=== PATIENT | male | born 1950 | race Caucasian/White ===

== ENCOUNTER → 2021-03-09 08:32 | Outpatient (BNVA) | payer MEDICARE, SELFPAY | PROVIDERS: PCP Internal Medicine; Visit Provider Urology | DX: R31.29 Other microscopic hematuria (principal); N40.0 Benign prostatic hyperplasia without lower urinary tract symptoms | CPT/HCPCS: 51798; 99202 ==

== ENCOUNTER 2021-04-04 09:36 | Outpatient (REF) | payer MEDICARE, SELFPAY ==
--- NOTE | ~2021-04-04 | US_ITS ---
EXAMINATION: US RETROPERITONEAL COMPLETE (RENAL) CLINICAL INFORMATION: Microscopic hematuria. COMPARISON: CT abdomen and pelvis without with contrast dated 11/14/2012. TECHNIQUE: Real-time imaging of the kidneys and bladder. FINDINGS: RIGHT KIDNEY: 11.6 x 5.2 x 6.1 cm (SAG x AP x TRV). The kidney is normal in size, contour, and echogenicity. Renal cortical thickness is normal. No calculi or focal parenchymal lesions. No hydronephrosis. LEFT KIDNEY: 11.3 x 4.9 x 5.2 cm (SAG x AP x TRV). The kidney is normal in size, contour, and echogenicity. Renal cortical thickness is normal. No calculi or focal parenchymal lesions. No hydronephrosis. BLADDER: Well distended and normal. Bilateral ureteral jets are demonstrated. Prevoid bladder volume is 150 mL. Postvoid bladder volume is 4 mL. Prostate volume is 24 mL. US/US retroperitoneal comp IMPRESSION: Negative exam. A cause for the patient's hematuria has not been found..
== END 2021-04-04 09:37 | disposition home or self-care (01) ==
LOC: HO.US 09:36
PROVIDERS: PCP Internal Medicine; Visit Provider Urology
DX: R31.29 Other microscopic hematuria (principal)
CPT/HCPCS: 76770

== ENCOUNTER 2021-09-12 09:33 | Outpatient (REF) | payer MEDICARE, SELFPAY ==
[2021-09-12 17:02] LABS: Urine Cytology See Pathology rpt
== END 2021-09-12 09:34 | disposition home or self-care (01) ==
LOC: HO.LAB 09:33
PROVIDERS: PCP Internal Medicine; Visit Provider Urology
DX: Z13.9 Encounter for screening, unspecified (principal); R31.29 Other microscopic hematuria
CPT/HCPCS: 52000; 88112; 99212

== ENCOUNTER 2022-03-14 10:25 | Outpatient (REF) | payer MEDICARE, SELFPAY ==
[2022-03-14 17:30] LABS: Urine Cytology See Pathology rpt
== END 2022-03-14 10:26 | disposition home or self-care (01) ==
LOC: HO.LAB 10:25
PROVIDERS: PCP Internal Medicine; Visit Provider Urology
DX: R31.29 Other microscopic hematuria (principal)
CPT/HCPCS: 88112; 99212

== ENCOUNTER 2023-03-13 09:37 | Outpatient (REF) | payer MEDICARE, SELFPAY ==
[2023-03-13 16:41] LABS: Urine Cytology See Pathology rpt
== END 2023-03-13 09:38 | disposition home or self-care (01) ==
LOC: HO.LNP 09:37
PROVIDERS: Visit Provider Urology
DX: R31.29 Other microscopic hematuria (principal)
CPT/HCPCS: 81003; 88112; 99212

== ENCOUNTER 2023-03-13 09:37 | Outpatient (AMB) | payer MEDICARE, SELFPAY ==
--- NOTE | 2023-03-13 09:57 | A.OFFVIS_ITS ---
Intake Intake Visit Reasons: 1Y UA(Hematuria) Intake Note: Patient is Present for Follow Up Urinalysis Urology Medication: Finasteride, Antibiotic Allergies: None Blood Thinners: None Allergies No Known Allergies Allergy (Verified 03/13/23 10:01) HPI HPI Comments History of Present Illness Details Dusty is a pleasant male. He is a patient of Dr. Erwin. He is seen for the following urologic conditions - microscopic hematuria Trace blood today Persistent Prior full examination Follow-up p.r.n. Microscopic hematuria Microscopic hematuria was diagnosed during - PCP visit They are here for the - initial evaluation. Prior evaluation 2012 Since the last visit the patient has - has not noticed gross hematuria, continues to have positive for microscopic hematuria Relevant medical history - anticoagulation therapy - no - kidney stones no - prostatitis no Prior tobacco use - prior tobacco exposure stopped 2014 Workplace exposures - none that he is aware of Radiographic imaging: None completed, renal bladder ultrasound ordered Other investigations - cytology, pending Cystoscopy findings 2021 clear PFSH Medical History HTN (hypertension) BPH (benign prostatic hyperplasia) Hematuria Surgical History History of surgery Review of Systems Const Denies chills and Denies fever(s) Card Reports no additional complaints and Denies syncope Resp Denies cough GI Denies abdominal pain and Denies heartburn Reports as per HPI and Denies change in libido Neuro Denies syncope Psych Denies change in libido Endo Denies change in libido Physical Exam Const General: cooperative, healthy appearing, comfortable and no acute distress Orientation/consciousness: patient oriented x3 HEENT Face and sinus: Yes normal facial exam Mouth: moist mucous membranes Neck Neck: Yes normal visual inspection, Yes full ROM and Yes trachea midline Chest Chest palpation & inspection: normal inspection of the chest Resp Effort & Inspection: normal respiratory effort, able to speak in complete sentences and no respiratory distress GI Inspection: Yes normal to inspection Back/Spine/Pelvis Cervical Spine: normal cervical lordosis Thoracic/Lumbar Spine: thoracic and lumbar spine normal to inspection Skin General skin exam: no rashes or lesions noted Neuro General: patient oriented x3, gait normal, tone normal and moves all extremities Extrem General: Yes normal to inspection and Yes capillary refill normal Results AMB Urinalysis, Automated UA Leukoctes 0 Yuliana/uL Last Edit by Lila Gonzalez, A on 03/13/23 10:02 UA Nitrite Negative Last Edit by Lila Gonzalez, A on 03/13/23 10:02 UA Urobilinogen 0.2 mg/dL Last Edit by Lila Gonzalez, A on 03/13/23 10:0 2 UA Protein 0 mg/dL Last Edit by Lila Gonzalez, A on 03/13/23 10:02 UA pH 5.5 Last Edit by Lila Gonzalez, A on 03/13/23 10:02 UA Blood 80 Hay/uL Last Edit by Lila Gonzalez, A on 03/13/23 10:02 UA Specific Arnegard 1.020 Last Edit by Lila Gonzalez, A on 03/13/23 10: 02 UA Ketone Negative Last Edit by Lila Gonzalez, A on 03/13/23 10:02 UA Bilirubin 0 mg/dL Last Edit by Lila Gonzalez, A on 03/13/23 10:02 UA Glucose 0 mg/dL Last Edit by Lila Gonzalez, A on 03/13/23 10:02 Results Reviewed Results Reviewed: Laboratory Last Values Urine pH (Auto) 5.5 03/13/23 10:01 Specific Arnegard (Auto) 1.020 03/13/23 10:01 Urine Protein (Auto) 0 mg/dL 03/13/23 10:01 Glucose (UA)(Auto) 0 mg/dL 03/13/23 10:01 Urine Ketones (Auto) Negative 03/13/23 10:01 Urine Blood (Auto) 80 Hay/uL 03/13/23 10:01 Urine Nitrite (Auto) Negative 03/13/23 10:01 Urine Bilirubin (Auto) 0 mg/dL 03/13/23 10:01 Urine Urobilinogen (Auto) 0.2 mg/dL 03/13/23 10:01 Leukocyte Esterase (Auto) 0 Yuliana/uL 03/13/23 10:01 Assessment & Plan Assessment & Plan (1) Microscopic hematuria: Comment: Cystoscopy August 2021 Code(s): R31.29 - Other microscopic hematuria Plan P.r.n. follow-up Orders: Orders AMB Urinalysis Automated Today Z13.9 - Encounter for screening, unspecified Urine Cytology Today R31.29 - Other microscopic hematuria Patient Instructions: Imaging studies, laboratory and physical exam results were discussed and reviewed in detail. No major barriers to patient understanding were identified. An opportunity to ask questions regarding the treatment plan was provided. All questions were answered. The patient expressed understanding and agreement with the above treatment plan. The patient is aware they should contact our office by phone for worsening of their current condition or the appearance of new urologic symptoms. Compliance is encouraged with any medications and followup testing that is ordered. It is a privilege to participate in the urologic care of your patient. If you have any questions or concerns regarding treatment for the above conditions, or other urologic issues, please do not hesitate to contact me. The office telephone contact is [phone]. This note is constructed using voice recognition software. While every effort has been made to ensure accuracy invoice classification clerk errors may have been included. Yours sincerely, Dr Kyle Gracia MD, [facility] - Urology Providers of Expert, Compassionate Care for the Genitourinary System Coding Level of Care Code Est Pt Level 3 (10210) Diagnoses Microscopic hematuria R31.29
== END 2023-03-13 10:11 | disposition home or self-care (01) ==
PROVIDERS: Visit Provider Urology
DX: R31.29 Other microscopic hematuria (principal); Z13.9 Encounter for screening, unspecified
CPT/HCPCS: 99213

== ENCOUNTER 2023-11-19 12:58 | Outpatient (AMB) | payer MEDICARE, SELFPAY ==
--- NOTE | 2023-11-19 13:06 | A.OFFVIS_ITS ---
Vital Signs 11/19/23 13:12 Weight 185 lb BP 133/60 Blood Pressure Location Rt brachial Position Sitting Pulse 55 Intake Visit Reasons: RIH Intake Note: Patient referred by pcp Dr. Erwin for [facility]. Present for 3-4 wks. Patient c/o: swelling on rt lower abd. Hot Top Liner Helper Required: No Accompanied by: Candy Allergies No Known Allergies Allergy (Verified 11/19/23 13:12) HPI Comments Details: Patient presents with his . He presents here with a three-week history of symptomatic enlarging right inguinal hernia. Because it is increasing in size, become more symptomatic, he would like to have repaired. Patient otherwise is tolerating his diet, and having regular bowel habits. He does do strenuous/heavy lifting at times. He is quite active around his home. Chart was reviewed and patient evaluated. [facility] Medical History HTN (hypertension) BPH (benign prostatic hyperplasia) Hematuria Surgical History History of surgery Social History (Updated 11/19/23 @ 13:11 by SHAZIA Gibson) Patient Tobacco Use Status: Former Tobacco user Physical Exam Vital Signs: Last Vital Signs Pulse 55 11/19/23 13:12 BP 133/60 11/19/23 13:12 Chest Other: Chest breath sounds bilaterally, HS 1 in 2 GI Other: Patient was examined both supine and standing with Valsalva. Left groin negative. Abdomen is soft and benign. Moderately corpulent. Genitalia within normal limits. Very large reducible right inguinal hernia. Assessment & Plan Assessment & Plan (1) Right inguinal hernia: Code(s): K40.90 - Unilateral inguinal hernia, without obstruction or gangrene, not specified as recurrent Category: Surgical Plan Risks, benefits, alternatives of open right inguinal hernia repair with mesh reviewed with the patient included but not limited to bleeding, infection, recurrence, numbness, pain, scarring the patient wished to proceed. All questions answered. Arrangements were made for this. Coding Level of Care Code New Pt Level 5 (00802) Diagnoses Right inguinal hernia K40.90
[2023-11-19 13:12] VITALS: BP 133/60; PULSE 55
== END 2023-11-19 13:24 | disposition home or self-care (01) ==
PROVIDERS: PCP Internal Medicine; Referring Provider Internal Medicine; Visit Provider Surgery
DX: K40.90 Unilateral inguinal hernia, without obstruction or gangrene, not specified as recurrent (principal)
CPT/HCPCS: 99204

== ENCOUNTER → 2023-11-19 12:58 | Outpatient (BNVA) | payer MEDICARE, SELFPAY | PROVIDERS: PCP Internal Medicine; Referring Provider Internal Medicine; Visit Provider Surgery | DX: K40.90 Unilateral inguinal hernia, without obstruction or gangrene, not specified as recurrent (principal) | CPT/HCPCS: 99202 ==

== ENCOUNTER 2023-12-20 11:52 | Day surgery (SDC) | payer MEDICARE, SELFPAY ==
[2023-12-17 13:39] VITALS: BMI 29.9
--- NOTE | 2023-12-19 11:12 | MHC.SHP ---
Pre-Procedural Eval Section A - 24 Hr Update-Section A only Date of Service: 12/20/23 The patient is an INPATIENT: No Changes since office visit: No Cold of Flu in the past 2 weeks, No New Medical Problems, No Changes in Medication and No Patient answered all questions Section B - Complete if H&P > 30 days Chief Complaint: Unilateral inguinal hernia, without obstruction or Allergies: Allergies Allergy/AdvReac Type Severity Reaction Status Date / Time No Known Allergies Allergy Verified 11/19/23 13:12 Review of Systems Sugical H&P ROS: Negative: Constitution, Cardiovascular, Respiratory, Neurological, Psychiatric, Hem-Onc, Allergic/Immunologic, Gastrointestinal, Genitourinary, Musculoskeletal, Integumentary, Endocrine and Eyes/Ears/Nose/Throat Exam Surgical H&P Exam: Normal: HEENT, Normal: Heart, Normal: Lungs, Normal: Extremities, Normal: Abdomen, Normal: Skin and Normal: Neurological Plan I have reviewed the history and physical and performed a pertinent physical examination on my patient. No changes have occurred unless specified. Time Spent With Patient Time: Total time managing care of this patient today ____ minutes.
[2023-12-20] VITALS (8 sets, daily range): BP systolic 105–126; BP diastolic 49–63; PULSE 62–66; RESP 12–14; TEMP 36.1–36.4; O2SAT 96; BMI 30.5
--- NOTE | 2023-12-20 12:13 | HO.ANESPROP2 ---
PMFSH Active Problems Active Problems: All Active Problems Right inguinal hernia (Acute) Microscopic hematuria (Acute) Past Medical History Medical History Psoriatic arthritis HTN (hypertension) BPH (benign prostatic hyperplasia) Hematuria Surgical History Surgical History Hx of colonoscopy History of hip replacement Hx of shoulder surgery Hx of cystoscopy History of Problems with Anesthesia: No Social History Social History Are you a primary health care marketing specialist to a significant other at home: No Do you presently have visiting nurse or other home services: No Patient Tobacco Use Status: Former Tobacco user Meds Allergies Allergy/AdvReac Type Severity Reaction Status Date / Time No Known Allergies Allergy Verified 12/20/23 12:52 Home Medications ?Medication ?Instructions ?Recorded ?Confirmed ?Last Taken ?Type naproxen 500 mg tablet 500 mg PO BID 03/09/21 12/20/23 Unknown History apremilast 30 mg tablet (Otezla) 30 mg PO BID 12/17/23 12/20/23 Unknown History lisinopril 20 1 tab PO DAILY 12/17/23 12/20/23 Unknown History mg-hydrochlorothiazide 12.5 mg tablet Exam Height,Weight and Vital Signs: Height 5 ft 6 in Weight 83.915 kg Airway Mallampati Class: III TM Dist: >3cm Neck ROM: Full Loose/Missing/Broken Teeth: Yes, Upper and Lower Heart: RRR Lungs: CTA Assessment and Plan Assessment Anesthesia Assessment: Anesthesia Plan Discussed, Smoking Cess. Discussed and Chart Reviewed Final Anesthetic Review History of Problems with Anesthesia: No NPO: Yes ASA Class: II Final Preanesthetic Review: Meds/Allgs Chart Reviewed, Consent Obtained/Reviewed and Anes Risks/Benef Reviewed Patient Risk: Low Procedure Risk: Low Anesthetic Plan Anesthetic Plan: GA Disposition: Standard PACU
--- NOTE | 2023-12-20 12:40 | ECG_ITS ---
Test Reason : ? BBB Blood Pressure : / mmHG Vent. Rate : 061 BPM Atrial Rate : 061 BPM P-R Int : 134 ms QRS Dur : 120 ms QT Int : 420 ms P-R-T Axes : -29 -30 -23 degrees QTc Int : 422 ms Normal sinus rhythm Left axis deviation Right bundle branch block Minimal voltage criteria for LVH, may be normal variant ( R in aVL ) Lateral infarct , age undetermined Abnormal ECG No previous ECGs available Referred By: Rosetta Pena Electronically Signed By:RODRI LAW
[2023-12-20] MEDS: Lactated Ringers 1,000 ML 50 ML IVCONT (12:55)
--- NOTE | 2023-12-20 13:50 | P.OP_ITS ---
Operative Note Operative Note Date of Service: 12/20/23 Narrative: Preoperative diagnosis: [] Symptomatic large right inguinal hernia Postop diagnosis: [] The same Procedure [] open right inguinal herniorrhaphy Surgeon: [] Sagar Historian Research Assistant: [] Génesis Type of Anesthesia: [] General Indication for surgery: [] Very large indirect right inguinal hernia. No indirect hernia Findings: [] Patient brought to the operating room, placed on operative table supine position, after an adequate level of general anesthesia was induced, the patient's abdomen is prepped and draped in usual sterile fashion. Using a small right para inguinal incision, this carried down through skin, subcutaneous tissue, Jen's fascia. External oblique fibers were opened in the direction with care to isolate and preserve the ilioinguinal nerve throughout the procedure. Spermatic cord was identified and retracted from the field. Exploration of the cord demonstrated no indirect hernia. Patient had a very large indirect hernia which was reduced. A appropriately sized Bard plug was placed in this defect and sutured inferiorly to the inguinal ligament, and superiorly to the transversalis fascia using interrupted 0 Ethibond suture. At completion of procedure, mesh was in good position with no gaps or tension. Wound was infiltrated with ilioinguinal block and it the incision as well at the beginning at the end with 0.5% Marcaine. Wound was irrigated, secured hemostasis, and closed in the following manner; external oblique fascia was closed using running 2-0 Vicryl suture. Jen's fascia was reapproximated using interrupted 3-0 Vicryl suture. Interrupted inverted deep dermal 3-0 Vicryl sutures followed by running subcuticular 4-0 Vicryl sutures were placed. Steri-Strips and sterile dressings were applied. Sponge, needle, and instrument counts were reported correct. Patient tolerated the procedure well and emerged from anesthesia stable condition. Ipsilateral testicle was intrascrotal at completion.
== END 2023-12-20 14:52 | disposition home or self-care (01) ==
PROVIDERS: PCP Internal Medicine; Visit Provider Surgery
PROC: (CPT 49505; principal; 2023-12-20 14:10)
DX: K40.90 Unilateral inguinal hernia, without obstruction or gangrene, not specified as recurrent (principal); I10 Essential (primary) hypertension; L40.50 Arthropathic psoriasis, unspecified; N40.0 Benign prostatic hyperplasia without lower urinary tract symptoms; R31.29 Other microscopic hematuria; Z79.1 Long term (current) use of non-steroidal anti-inflammatories (NSAID); Z79.899 Other long term (current) drug therapy; Z98.890 Other specified postprocedural states; Z87.891 Personal history of nicotine dependence
CPT/HCPCS: 49505; 93005; C1781; J0690; J1100; J2003; J2250; J2405; J2704; J3010

== ENCOUNTER → 2023-12-20 11:52 | Outpatient (BNV) | payer MEDICARE, SELFPAY | PROVIDERS: PCP Internal Medicine; Visit Provider Surgery | DX: K40.90 Unilateral inguinal hernia, without obstruction or gangrene, not specified as recurrent (principal) | CPT/HCPCS: 49505 ==

== ENCOUNTER → 2023-12-20 12:40 | Outpatient (BNV) | payer MEDICARE, SELFPAY | PROVIDERS: PCP Internal Medicine; Visit Provider Internal Medicine | DX: I45.10 Unspecified right bundle-branch block (principal); R94.31 Abnormal electrocardiogram [ECG] [EKG] | CPT/HCPCS: 93010 ==

== ENCOUNTER 2023-12-30 12:45 | Outpatient (AMB) | payer MEDICARE, SELFPAY ==
--- NOTE | 2023-12-30 12:54 | MHC.OFFVIS ---
Intake Visit Reasons: s/p RIH repair w/mesh Intake Note: Patient here s/p RIH repair w/mesh. Reports incision healing well. Patient c/o: stri strips still in place. Only took rx pain meds the first couple of days after surgery. SX: 12-20-2023. Head Up Operator Helper Required: No Accompanied by: Self / Same As Patient Allergies No Known Allergies Allergy (Verified 12/30/23 12:58) HPI Comments Details: Patient presents for follow-up status post right inguinal hernia repair. He is doing well. He is tolerating his diet. He is increasing his activity level. He has minimal incisional discomfort. [facility] Medical History Psoriatic arthritis HTN (hypertension) BPH (benign prostatic hyperplasia) Hematuria Surgical History Hx of colonoscopy History of hip replacement Hx of shoulder surgery Hx of cystoscopy Social History Are you a primary post acute care nurse practitioner to a significant other at home: No Do you presently have visiting nurse or other home services: No Patient Tobacco Use Status: Former Tobacco user Physical Exam GI Other: Abdomen is soft. Wound clean dry and intact healing well Assessment & Plan Assessment & Plan (1) Status post right inguinal hernia repair: Code(s): Z98.890 - Other specified postprocedural states; Z87.19 - Personal history of other diseases of the digestive system Category: Medical Plan Patient was been given local instructions, and will otherwise follow-up p.r.n.. All questions answered. Coding Level of Care Code Global (82340) Diagnoses Status post right inguinal hernia repair Z98.890; Z87.19
== END 2023-12-30 13:08 | disposition home or self-care (01) ==
PROVIDERS: PCP Internal Medicine; Visit Provider Surgery
DX: Z98.890 Other specified postprocedural states (principal); Z87.19 Personal history of other diseases of the digestive system
CPT/HCPCS: 99024

== ENCOUNTER → 2023-12-30 12:45 | Outpatient (BNVA) | payer MEDICARE, SELFPAY | PROVIDERS: PCP Internal Medicine; Visit Provider Surgery | DX: K40.90 Unilateral inguinal hernia, without obstruction or gangrene, not specified as recurrent (principal); Z87.19 Personal history of other diseases of the digestive system; Z98.890 Other specified postprocedural states | CPT/HCPCS: 99212 ==

== ENCOUNTER 2024-02-21 17:40 | Emergency (ER) | payer MEDICARE, SELFPAY ==
--- NOTE | ~2024-02-21 | CT_ITS ---
CLINICAL HISTORY: slurred speech, bilat leg weakness, resolved CT Head without contrast. CT angiography head and neck with contrast. 3D Postprocessing. Comparison: None Findings: HEAD CT: No intra-axial mass, midline shift, hydrocephalus, or acute hemorrhage. No significant atrophy-like change or white matter disease. Opacification of the anterior and posterior ethmoid air cells with obstruction of the sphenoethmoid recesses. Moderate mucosal thickening in the ethmoid air cells and maxillary sinuses. HEAD AND NECK CTA: The bilateral common carotid arteries, carotid bifurcations, and internal carotid arteries are widely patent, including intracranial segments. Anterior and middle cerebral arteries are patent with no occlusion or narrowing identified. The cervical vertebral arteries and V4 segments appear normal. Basilar artery and posterior cerebral arteries are within normal limits. IMPRESSION: 1. No acute intracranial finding. 2. Patent head and neck CTA examination. This document has been electronically signed by: Vic Bedoya MD on 02/21/2024 21:23:44
[2024-02-21 18:00] VITALS: BP 86/45; BP 94/43; PULSE 61; PULSE 76; RESP 18; O2SAT 96; BMI 32.6
--- NOTE | 2024-02-21 18:10 | PC.NURSE ---
Pt comes to ED today by EMS from home after suffering low BP and an episode of unresponsiveness related to using ETOH, Nicotine, and Marijuana. Per Pt and , they used the above mentioned substances once before on 02/18/24 and enjoyed themselves, therefore decided to use them again today. Per the , they used the substances, eat a small snack then sat outside. Pt began to fell unwell and she brought him to the couch (no fall) then became unresponsive. Pt reports he does not use these substances regularly on 2x within the last week. A&Ox3 at this time; Pt reports fully feeling the effects of the MJ at this time. BP is soft. Skin is warm and dry Breaths and speech are unlabored. Facial symmetry noted. Pt received IVF in ambulance. Awaiting orders.
--- NOTE | 2024-02-21 19:25 | ECG_ITS ---
Test Reason : NEAR SYNCOPE Blood Pressure : / mmHG Vent. Rate : 079 BPM Atrial Rate : 079 BPM P-R Int : 136 ms QRS Dur : 142 ms QT Int : 418 ms P-R-T Axes : 067 -50 054 degrees QTc Int : 479 ms Normal sinus rhythm Right bundle branch block Left anterior fascicular block Bifascicular block Minimal voltage criteria for LVH, may be normal variant ( R in aVL ) Abnormal ECG When compared with ECG of 20-DEC-2023 12:48, QRS duration has increased Criteria for Lateral infarct are no longer Present T wave inversion no longer evident in Inferior leads QT has lengthened Referred By: Rosana Campa Electronically Signed By:LIZETTE ROSALES MD
--- NOTE | 2024-02-21 19:27 | ED.GENADULT ---
HPI - General Adult General Chief complaint: ETOH/Substance Use Stated complaint: briefly unresponsive, now alert, etoh, bp 84/48 Time Seen by Provider: 02/21/24 18:10 Source: patient and EMS Mode of arrival: EMS Limitations: no limitations History of Present Illness ED Provider: Dr. Rosana Campa HPI narrative: Patient comes to the emergency room via ambulance accompanied by his . According to the patient's , earlier today the patient was found unresponsive, could not wake him up for about 15 minutes, when she finally woke the patient up, patient had slurred speech, was very weak and could not get off the couch. Patient's called 911. Patient states that at this time, he feels completely back to normal. Patient states that earlier today, him and his got good news and they decided to celebrate by drinking alcohol and smoking marijuana. Patient states that they are not used to drinking or smoking and it was a bit much for him today. Patient states that he ?partied too hard . Related Data Home Medications ?Medication ?Instructions ?Recorded ?Confirmed naproxen 500 mg tablet 500 mg PO BID 03/09/21 12/30/23 apremilast 30 mg tablet (Otezla) 30 mg PO BID 12/17/23 12/30/23 lisinopril 20 1 tab PO DAILY 12/17/23 12/30/23 mg-hydrochlorothiazide 12.5 mg tablet Previous Rx's ?Medication ?Instructions ?Recorded finasteride 5 mg tablet 5 mg PO DAILY 90 days #90 tabs 09/12/21 Allergies Allergy/AdvReac Type Severity Reaction Status Date / Time No Known Allergies Allergy Verified 02/21/24 18:04 Review of Systems Review of Systems: Constitutional : No Weight loss, No Fever, No Chills, No Night Sweats, No Fatigue, No Malaise ENT/Mouth : No Hearing loss, No Ear Pain, No Nasal Congestion, No Sinus Pain, No Hoarseness, No sore throat, No Rhinorrhea, No Swallowing Difficulty Eyes: No Eye Pain, No Swelling, No Redness, No Foreign Body, No Discharge, No Vision Changes Cardiovascular : No Chest Pain, No SOB, No Dyspnea on Exertion, No Orthopnea, No Edema, No Palpitations Respiratory : No Cough, No Sputum, No Wheezing, No Smoke Exposure, No Dyspnea Gastrointestinal : No Nausea, No Vomiting, No Diarrhea, No Constipation, No abdominal Pain, No Hematochezia, No Melena Genitourinary : no irregular bleeding, No Dysuria, No Urinary Frequency, No Hematuria, No Urinary Incontinence, No Urgency, No Flank Pain, No Urinary Flow Changes, No Hesitancy Musculoskeletal : No joint pain, No Myalgias, No Joint Swelling Skin : No Skin Lesions, No rash Neuro : No Weakness, No Numbness, 1 episode possible loss of consciousness, dysarthria, bilateral leg weakness Psych : No Anxiety/Panic, No Depression, No SI/HI/AH/VH, No Social Issues, Heme/Lymph: No Bruising, No Bleeding,No Lymphadenopathy Endocrine : No Polyuria, No Polydipsia, No Temperature Intolerance [facility] Past Medical History Medical History Psoriatic arthritis HTN (hypertension) BPH (benign prostatic hyperplasia) Hematuria Surgical History Hx of colonoscopy History of hip replacement Hx of shoulder surgery Hx of cystoscopy Social History Social History Are you a primary hearing healthcare practitioner to a significant other at home: No Do you presently have visiting nurse or other home services: No Alcohol intake: current Alcohol intake frequency: holidays/special occasions only Patient Tobacco Use Status: Former Tobacco user Smoked in Last 30 Days: Yes Use of substances other than those prescribed or required for medical reasons: Yes Substance Use Type: Marijuana Last Used Substance: Just Prior to Admission Any prior treatment program specific to substance use: No Advance Directives: No Advance Directives Information Provided: No Do you have a plan to hurt others: No Plan Physical Exam ED Vital Signs: Vital Signs - 24 hr 02/21/24 18:00 02/21/24 21:52 Temperature 98.0 F Pulse Rate 61 82 Respiratory Rate 18 18 Blood Pressure 94/43 L 107/60 Pulse Oximetry 96 97 Oxygen Delivery Method Room Air Room Air BMI result Body Mass Index 32.6 Const Other: Appearance: Alert. Oriented X3. No acute distress. Eyes: Pupils equal, round and reactive to light. ENT: Pharynx normal. Neck: Normal inspection. Neck supple. No lymph nodes noted. No crepitus CVS: Normal heart rate and rhythm. Pulses normal. Normal S1 and S2 Respiratory: No respiratory distress. Breath sounds normal. No Wheezing. No rales Abdomen: Soft and nontender. No rigidity. No distention. Skin: Skin warm and dry. Normal skin color. Normal skin turgor. Extremities: No lower extremity edema. No Lacerations. No Rash Neuro: Oriented X 3. No motor deficit. No sensory deficit. Moving all extremities. No slurred speech. CN 2 through 12 grossly intact Psych: calm, cooperative, normal affect NIH Stroke Scale Internal: Initial- Upon Arrival Level of Consciousness: Alert Level of Consciousness Questions: Answers both questions correctly Level of Consciousness Commands: Performs both tasks correctly Best Gaze: Normal Visual: No visual loss Facial Palsy: Normal Motor Arm (Right): No drift Motor Arm (Left): No drift Motor Leg (Right): No drift Motor Leg (Left): No drift Limb Ataxia: Absent Sensory: Normal Best Language: No aphasia Dysarthia: Normal Extinction and Inattention: No abnormality Score: 0 Course Course Course Narrative: I discussed with the patient that patient's symptoms overlap with a TIA. It is likely that patient's symptoms were related to combining alcohol and marijuana. However, and neurological event could still be possible. Patient and his arguable to do the workup Medications Administered Discontinued Medications Generic Name Dose Route Start Last Admin Trade Name Freq PRN Reason Stop Dose Admin Iohexol 100 ml 02/21/24 20:29 02/21/24 20:33 Iohexol 350 Mg/Ml 100 Ml Infus..Btl IV 02/21/24 20:30 70 ml ONCE ONE Administration Medical Decision Making Medical Decision Making [facility] Narrative: My interpretation of labs: Patient's white blood cell count 16.7, normal chemistry, normal magnesium, urine negative for UTI, positive for THC and mildly elevated ETOH. CTA shows patent vasculature. Patient is alert and oriented x3, ambulatory, feeling well. No deficits. Unlikely that patient had a TIA, most likely secondary to medication/drug side effect. Differential Diagnosis Differential Diagnoses: The differential diagnosis associated with the presentation includes (As above) Admission/Observation Consideration of admission/observation: Escalation of care including admission/observation considered (Given patient's symptoms, observation/admission for further testing) Lab Data [facility] Lab Attestation statement: I reviewed the patient's lab results. 02/21/24 19:41 02/21/24 19:41 Labs: Lab Results 02/21/24 02/21/24 Range/Units 19:40 19:41 WBC 16.7 H (4.8-10.8) X10*3/uL RBC 5.33 (4.60-5.80) X10*6/uL Hgb 15.8 (14.0-18.0) g/dl Hct 48.4 (42.0-52.0) % MCV 90.8 (80.0-98.0) fL MCH 29.6 (27.0-33.0) pg MCHC 32.6 (31.0-36.0) g/dl RDW 13.8 (11.0-16.0) % Plt Count 202 (160-400) X10*3/uL MPV 10.1 (9.4-12.4) fL Immature Gran % (Auto) 0.5 H (0.0-0.4) % Neut % (Auto) 37.8 L (45-73) % Lymph % (Auto) 56.3 H (20-40) % [place] % (Auto) 4.5 (2-11) % Eos % (Auto) 0.6 (0-4) % Baso % (Auto) 0.3 (0-2) % Lymph # (Auto) 9.4 H (1.2-4.9) X10*3/uL [place] # (Auto) 0.8 (0.1-1.2) X10*3/uL Eos # (Auto) 0.1 (0.0-0.4) X10*3/uL Baso # (Auto) 0.1 (0.0-0.2) X10*3/uL Abs Immat Gran (auto) 0.08 H (0.00-0.03) X10*3/uL Absolute Neuts (auto) 6.3 (2.0-8.3) x10*3/uL Absolute Nucleated RBC 0.000 (0.0-0.012) X10*3/uL Nucleated RBC % (auto) 0.0 (0.0-0.2) /100WBC Smear Tech's Comments VERIFIED PT 11.5 (10.9-12.4) SEC INR 1.0 (0.9-1.1) Sodium 141 (135-145) mmol/L Potassium 3.3 (3.3-5.1) mmol/L Chloride 105 (96-108) mmol/L Carbon Dioxide 22 (22-29) mmol/L Anion Gap 17 (12-20) BUN 14 (9-16) mg/dL Creatinine 1.11 (0.5-1.4) mg/dL Estim Creat Clear Calc 63.7 Estimated GFR > 60 Random Glucose 97 (60-115) mg/dL Calcium 9.2 (8.4-10.2) mg/dL Magnesium 2.0 (1.6-2.6) mg/dL Total Bilirubin 0.3 (0.0-1.0) mg/dL Direct Bilirubin 0.1 (0.0-0.5) mg/dL AST 27 (5-37) U/L ALT 22 (0-40) U/L Alkaline Phosphatase 68 (39-117) U/L Troponin I High Sens 4.2 (<3.5-35.0) ng/L Total Protein 8.2 H (6.5-8.0) g/dL Albumin 4.3 (3.5-5.0) g/dL Urine Color Yellow Urine Appearance Clear Urine pH 5.5 (5.0-9.0) Ur Specific [place] 1.010 (1.005-1.025) Urine Protein 100 (2+) H (Neg-Trace) mg/dL Urine Glucose (UA) Negative (Negative) mg/dL Urine Ketones Negative (Negative) mg/dL Urine Blood Trace H (Negative) Urine Nitrite Negative (Negative) Ur Leukocyte Esterase Negative (Negative) Urine RBC 0-2 (0-2) /HPF Urine WBC 0-5 (0-5) /HPF Ur Squamous Epith Cells 0-2 (0-2) /HPF Urine Bacteria None Seen (None Seen) Hyaline Casts 0-2 (0-2) /LPF Urine Opiates Screen Not Detected (Not Detect) Ur Buprenorphine Scrn Not Detected (Not Detect) ng/mL Ur Oxycodone Screen Not Detected (Not Detect) ng/mL Urine Methadone Screen Not Detected (Not Detect) ng/mL Urine Fentanyl Screen Not Detected (Not Detect) Ur Barbiturates Screen Not Detected (Not Detect) Ur Phencyclidine Scrn Not Detected (Not Detect) Ur Amphetamines Screen Not Detected (Not Detect) U Benzodiazepines Scrn Not Detected (Not Detect) Urine Cocaine Screen Not Detected (Not Detect) U Marijuana (THC) Screen POSITIVE H (Not Detect) Ethyl Alcohol 71 mg/dL Independent Interpretation I performed an independent interpretation of an: CT Scan Radiology Impression Discussion of test interpretation with radiology: I have reviewed the radiologist's reading. Radiologist Impression: HEAD CT: No intra-axial mass, midline shift, hydrocephalus, or acute hemorrhage. No significant atrophy-like change or white matter disease. Opacification of the anterior and posterior ethmoid air cells with obstruction of the sphenoethmoid recesses. Moderate mucosal thickening in the ethmoid air cells and maxillary sinuses. HEAD AND NECK CTA: The bilateral common carotid arteries, carotid bifurcations, and internal carotid arteries are widely patent, including intracranial segments. Anterior and middle cerebral arteries are patent with no occlusion or narrowing identified. The cervical vertebral arteries and V4 segments appear normal. Basilar artery and posterior cerebral arteries are within normal limits. IMPRESSION: 1. No acute intracranial finding. 2. Patent head and neck CTA examination. Critical Care Time Critical Care Time Critical Care Time: Yes Total Critical Care Time: 45 Attestation: I have personally provided critical care time. Time includes review of lab data, radiology results, discussion with consultants, and monitoring for potential decompensation. Intervention performed as documented. Discharge Plan Discharge Clinical Impression: Side effect of drug Patient Disposition: Home, Self-Care Instructions: Adverse Drug Reaction (ED) Additional Instructions: Please follow-up with your primary care physician tomorrow. If you have any worsening or new symptoms, please return to the emergency room or call 911 Prescriptions: No Action lisinopril-hydrochlorothiazide 20-12.5 mg tablet 1 tab PO DAILY Otezla 30 mg tablet 30 mg PO BID naproxen 500 mg tablet 500 mg PO BID finasteride 5 mg tablet 5 mg PO DAILY 90 Days Qty: 90 1RF Print Language: Indonesian
[2024-02-21 19:52] LABS: Appearance Urine Clear; Color Urine Yellow; Glucose Urine UA Negative (Negative); Leukocyte Esterase Urine Negative (Negative); Nitrite Urine Negative (Negative); PH 5.5 (5.0-9.0); UMIC TRIGGER UACC YES; Urine Blood Trace (Negative); Urine Ketones Negative (Negative); Urine Protein 100 (2+) mg/dL (Neg-Trace)
[2024-02-21 19:53] LABS: Basophils Absolute Auto 0.1 X10*3/uL (0.0-0.2); Basophils Percent Auto 0.3 % (0-2); Eosinophils Absolute Auto 0.1 X10*3/uL (0.0-0.4); Eosinophils Percent Auto 0.6 % (0-4); Hematocrit 48.4 % (42.0-52.0); Hemoglobin 15.8 g/dl (14.0-18.0); Imm Gran Abs Auto 0.08 X10*3/uL (0.00-0.03); Imm Gran Pct Auto 0.5 % (0.0-0.4); Lymphocytes Percent Auto 56.3 % (20-40); MANUAL DIFF FLAG SCAN; Mean Corpuscular HGB Conc 32.6 g/dl (31.0-36.0); Mean Corpuscular Hemoglobin 29.6 pg (27.0-33.0); Mean Corpuscular Volume 90.8 fL (80.0-98.0); Mean Platelet Volume 10.1 fL (9.4-12.4); Monocytes Absolute Auto 0.8 X10*3/uL (0.1-1.2); Monocytes Percent Auto 4.5 % (2-11); Neutrophils Absolute Auto 6.3 x10*3/uL (2.0-8.3); Neutrophils Percent Auto 37.8 % (45-73); Platelet Count 202 X10*3/uL (160-400); Red Blood Count 5.33 X10*6/uL (4.60-5.80); Red Cell Distribution Width 13.8 % (11.0-16.0); SCAN SMEAR FLAG 1; White Blood Count 16.7 X10*3/uL (4.8-10.8)
[2024-02-21 19:58] LABS: Amphetamine Screen Urine Not Detected (Not Detect); Barbiturates, Urine Not Detected (Not Detect); Benzodiazepines Screen Urine Not Detected (Not Detect); Buprenorphine Scr Not Detected (Not Detect); Cannabinoid Screen Urine POSITIVE (Not Detect); Cocaine Screen Urine Not Detected (Not Detect); Fentanyl, urine Not Detected (Not Detect); Methadone Screen, Urine Not Detected (Not Detect); Opiate Screen Urine Not Detected (Not Detect); Oxycodone Screen Urine Not Detected (Not Detect); Phencyclidine Screen Urine Not Detected (Not Detect)
[2024-02-21 19:59] LABS: Ethanol 71 mg/dL
[2024-02-21 20:01] LABS: Prothrombin Time 11.5 SEC (10.9-12.4)
[2024-02-21 20:02] LABS: Alanine Aminotransferase 22 U/L (0-40); Albumin Level 4.3 g/dL (3.5-5.0); Alkaline Phosphatase 68 U/L (39-117); Anion Gap 17 (12-20); Aspartate Amino Transferase 27 U/L (5-37); Bilirubin Direct 0.1 mg/dL (0.0-0.5); Bilirubin Total 0.3 mg/dL (0.0-1.0); Blood Urea Nitrogen 14 mg/dL (9-16); Calcium 9.2 mg/dL (8.4-10.2); Carbon Dioxide 22 mmol/L (22-29); Chloride 105 mmol/L (96-108); Creatinine Clr Calc Pharmacy 63.7; Estimated Glomerular Filt Rate > 60; Glucose Random 97 mg/dL (60-115); Potassium 3.3 mmol/L (3.3-5.1); Sodium 141 mmol/L (135-145); Total Protein 8.2 g/dL (6.5-8.0)
[2024-02-21 20:06] LABS: Lymphocytes Absolute Auto 9.4 X10*3/uL (1.2-4.9)
[2024-02-21 20:09] LABS: Troponin-I High Sensitivity 4.2 ng/L (<3.5-35.0)
[2024-02-21] MEDS: iohexoL 350 MG/ML 100 ML INFUS..BTL IV (20:33)
[2024-02-21 20:59] LABS: SLIDE REVIEW VERIFIED
[2024-02-21 21:31] LABS: Bacteria Urine None Seen (None Seen); Hyaline Casts Urine 0-2 /LPF (0-2); RBC Urine 0-2 /HPF (0-2); Squamous Epithelial Cell Urine 0-2 /HPF (0-2); WBC Urine 0-5 /HPF (0-5)
[2024-02-21 21:52] VITALS: BP 107/60; PULSE 82; RESP 18; TEMP 36.7; O2SAT 97
[2024-02-21 22:43] VITALS: BP 114/55; PULSE 85; RESP 16; TEMP 35.8; O2SAT 96
== END 2024-02-21 22:45 | disposition home or self-care (01) ==
PROVIDERS: Emergency Provider Emergency Medicine; PCP Internal Medicine
DX: T40.711A Poisoning by cannabis, accidental (unintentional), initial encounter (principal); T51.0X1A Toxic effect of ethanol, accidental (unintentional), initial encounter; R40.4 Transient alteration of awareness; Y92.009 Unspecified place in unspecified non-institutional (private) residence as the place of occurrence of the external cause; R29.700 NIHSS score 0; F12.90 Cannabis use, unspecified, uncomplicated; F10.988 Alcohol use, unspecified with other alcohol-induced disorder; Y90.3 Blood alcohol level of 60-79 mg/100 ml
CPT/HCPCS: 36415; 70496; 70498; 80048; 80076; 80307; 81001; 83735; 84484; 85025; 85610; 93005; 99284; Q9967

== ENCOUNTER → 2024-02-21 19:24 | Outpatient (BNV) | payer MEDICARE, SELFPAY | PROVIDERS: Emergency Provider Emergency Medicine; PCP Internal Medicine; Visit Provider Radiology Diagnostic Radiology | DX: R47.81 Slurred speech (principal); R53.1 Weakness | CPT/HCPCS: 70496; 70498 ==

== ENCOUNTER → 2024-02-21 19:25 | Outpatient (BNV) | payer MEDICARE, SELFPAY | PROVIDERS: Emergency Provider Emergency Medicine; PCP Internal Medicine; Visit Provider Internal Medicine Cardiovascular Disease | DX: R55 Syncope and collapse (principal); I45.2 Bifascicular block; R94.31 Abnormal electrocardiogram [ECG] [EKG] | CPT/HCPCS: 93010 ==

== ENCOUNTER 2024-11-09 10:10 | Outpatient (AMB) | payer MEDICARE, SELFPAY ==
--- NOTE | 2024-11-09 10:19 | MHC.PC.OV ---
Vital Signs 11/09/24 10:21 Height 5 ft 6.85 in Weight 194 lb 6 oz BMI 30.6 BP 132/78 Blood Pressure Location Lt brachial Position Sitting Respiration 20 Pulse 55 Pulse Source Pulse Oximeter Temp 97.5 F Temp Source Temporal Artery Scan Pulse Oximetry (%) 98 Oxygen Delivery Method Room Air Intake Visit Reasons: establish care Order Entry Specialist Required: No Accompanied by: Self / Same As Patient Allergies No Known Allergies Allergy (Verified 11/09/24 10:41) Medication List - Last Reconciled 11/09/24 by Jocelyne Reddy PA-C apremilast (Otezla) 30 mg PO BID cetirizine 10 mg PO DAILY PRN lisinopril-hydrochlorothiazide 20-12.5 mg 1 tab PO DAILY Tobacco use date assessed: 11/09/24 Fall risk assessment: No Falls in past year Last assessed Fall Risk: 11/09/24 Dental Screening Dental Screen Date: 11/09/24 Did you have a dental visit in the last 12 months?: Yes HPI establish care HPI Details The patient is a 74-year-old male presenting for a new patient appointment as Dr. Erwin retired. Patient has a past medical history of psoriasis, hypertension, and a bump on the head. The patient reports having psoriasis, which was exacerbated following hip surgeries that resulted in metal hip implants. He experienced severe scabbing on his hands and knees, which led to the initiation of Otezla after consulting with Dr. Rico. The patient has been on Otezla without any adverse effects and reports significant improvement in symptoms. The patient has a history of hypertension, managed with a combination of lisinopril and hydrochlorothiazide. He reports adherence to his medication regimen, which has contributed to stable blood pressure readings. The patient noticed a bump on his head approximately one year ago, which has not resolved. He has been referred to dermatology for further evaluation, as it may be a cyst requiring removal. Social History - Marital Status: - Healthcare Proxy: [facility] Medical History (Updated 11/09/24 @ 11:49 by Jocelyne Reddy PA-C) Influenza vaccine administered Psoriasis Scalp cyst Psoriatic arthritis HTN (hypertension) BPH (benign prostatic hyperplasia) Hematuria Surgical History Hx of colonoscopy History of hip replacement Hx of shoulder surgery Hx of cystoscopy Family History Father Heart disease Mother No problems noted. Social History Housing: House Are you a primary home care manager rn to a significant other at home: No Do you presently have visiting nurse or other home services: No Alcohol intake: current Alcohol intake frequency: holidays/special occasions only Patient Tobacco Use Status: Former Tobacco user Substance Use Type: Marijuana service: No Current occupational status: retired Cognitive needs: No Hearing needs: No Vision needs: Yes (rx glasses) Questionnaire PHQ-9 Over the last 2 weeks, how often have you been bothered by any of the following problems? 1. Little interest or pleasure in doing things: not at all 2. Feeling down, depressed, or hopeless: not at all 3. Trouble falling or staying asleep, or sleeping too much: not at all 4. Feeling tired or having little energy: not at all 5. Poor appetite or overeating: not at all 6. Feeling bad about yourself - or that you are a failure or have let yourself or your family down: not at all 7. Trouble concentrating on things, such as reading the newspaper or watching television: not at all 8. Moving or speaking so slowly that other people could have noticed. Or the opposite - being so fidgety or restless that you have been moving around a lot more than usual: not at all 9. Thoughts that you would be better off or of hurting yourself in some way: not at all Total score: 0 Depression Screening Interpretation: Negative Depression Screening Done: Yes 76310 - PHQ-9 Billing: Yes Source: Developed by Drs. oRland Medrano, Lyn Ramsey, Cristhian Dominguez and colleagues, with an educational ramón from [employer]. Thrive Questionnaire I am a: Patient What is your living situation today?: I have a steady place to live Within the past 12 months, did the food you bought not last and you didn't have the money to get more?: Never true Within the past 12 months, did you worry whether your food would run out before you got money to buy more?: Never true Do you have trouble paying for medicines?: No Do you have trouble getting transportation to medical appointments?: No Do you have trouble paying your heating and electricity bill?: No Do you have trouble taking care of your child, family member or friend?: No Do you have trouble with day-to-day activities such as bathing, preparing meals, shopping, managing finances, etc.?: No Are you currently unemployed and looking for a job?: No Are you interested in more education?: No Please select the resources that you would like help with: None THRIVE Score: 0 BEL-7 AMB Questionnaire BEL-7 Date BEL - 7 assessed: 11/09/24 Feeling nervous, anxious, or on edge: 0 = Not at all Not being able to stop or control worryin = Not at all Worrying too much about different things: 0 = Not at all Trouble relaxin = Not at all Being so restless that it is hard to sit still: 0 = Not at all Becoming easily annoyed or irritable: 0 = Not at all Feeling afraid as if something awful might happen: 0 = Not at all Total BEL-7 score (0-4 normal; 5-9 mild; 10-14 moderate; 15-21 severe): 0 Source: Developed by Drs. Roland Medrano, Lyn Ramsey, Cristhian Dominguez and colleagues, with an educational ramón from [employer]. BEL-7 Assessment Billing BEL-7 Assessment Tool: BEL-7 Assessment 45468 Review of Systems Const Details: - General: Denies recent falls, chest pain, abdominal pain, black or bloody stools, and leg swelling. All systems reviewed & are unremarkable except as noted in HPI and below Physical exam (Primary Care) Vital Signs: Last Vital Signs Temp 97.5 F 11/09/24 10:21 Pulse 55 11/09/24 10:21 Resp 20 11/09/24 10:21 BP 132/78 11/09/24 10:21 Pulse Ox 98 11/09/24 10:21 Oxygen Delivery Method Room Air 11/09/24 10:21 Care Plan Goal for BP management: <140/90 at Goal BMI result Body Mass Index 30.6 BMI Assessment/Plan discussion: High BMI High, discussed plan: lifestyle, weight reduction, dietary, physical activity, alcohol moderation and other Tobacco/Smoking Status: Tobacco use Status Tobacco use date assessed 11/09/24 11/09/24 10:32 Patient Tobacco Use Status Former Tobacco user 11/09/24 10:20 PHQ-9: PHQ-9 Score PHQ-9: Total score 0 11/09/24 10:42 Depression Screening Interpretation: Negative Const Other: Appearance: Alert. Oriented X3. No acute distress. Head: Normal external exam. Normocephalic. Atraumatic. Bump on head noted, present for about a year. Eyes: Pupils are equal, round, and reactive to light. Extraocular movements intact. Conjunctiva and sclera normal. Eyelids normal. Throat: Pharynx normal. Uvula midline. Moist mucous membranes. Neck: Normal inspection. Neck supple. Full range of motion. Cardiovascular: Normal heart rate and rhythm. Heart sound normal. No murmurs noted. Pulses normal throughout. Respiratory: No respiratory distress. Painless inspiration. Breath sounds normal. No wheezes/rales/rhonchi noted. Chest nontender. No accessory muscle usage noted or decreased air movement noted. Abdomen: Soft and nontender. Bowel sounds normal in all 4 quadrants. Back: Full range of motion noted. Skin: Skin warm and dry. Normal skin color. Normal skin turgor. No rashes/lesions/lacerations noted. Extremities: No lower extremity edema. Extremities exhibit normal range of motion. Neuro: Oriented X 3. No motor deficit. No sensory deficit. Reflexes normal. Office Procedures Flu Questionnaire Does the patient have a severe egg allergy?: No Does the patient have severe life threatening allergies?: No Does the patient have a fever or illness today?: No Has the patient ever had Guillain-[place] Syndrome?: No Has the patient ever had any past reaction to a flu shot?: No Immunizations Fluarix [id number] (PF) 45 mcg (15 mcg x 3)/0.5 mL IM syringe Performing Provider: Jocelyne Reddy PA-C [facility] Administered by: Yarely Cano CMA on 11/09/24 10:34 Dose Route Admin Location Dispensed Lot Number Expiration Date [employer] 0.5 mL IM Left Deltoid 0.5 mL [id number] 08/17/25 40133-329-55 [place] VIS Given Date VIS Provided VIS Publication Date 11/09/24 Single Vaccine 24 Eligibility Eligibility Date Funding Source Not [facility] Eligible 11/09/24 Private Results Reviewed Results Reviewed: - Labs: Blood work in was normal, including kidney function and urinalysis. Coding Level of Care Code New Pt Level 4 (80583) Complex EM visit Add On G2211 Diagnoses Psoriasis L40.9 HTN (hypertension) I10 Scalp cyst L72.9 Influenza vaccine administered Z23 Additional Codes PHQ-9 - 16727 - PHQ-9 Billing: Yes ([id number]) BEL-7 Assessment Billing - BEL-7 Assessment Tool: BEL-7 Assessment 42731 ([id number]) Assessment & Plan Assessment & Plan (1) Psoriasis: Code(s): L40.9 - Psoriasis, unspecified Category: Medical Plan: The patient will continue with Otezla for psoriasis management, as it has been effective without adverse effects. No additional blood tests are required for monitoring at this time. (2) HTN (hypertension): Code(s): I10 - Essential (primary) hypertension Category: Medical Plan: The patient will continue with the current antihypertensive regimen of lisinopril and hydrochlorothiazide. Blood pressure monitoring will continue to ensure stability. (3) Scalp cyst: Code(s): L72.9 - Follicular cyst of the skin and subcutaneous tissue, unspecified Category: Medical Plan: The patient has been referred to dermatology for evaluation of the bump on the head, suspected to be a cyst. Further management will be determined based on dermatological assessment. (4) Influenza vaccine administered: Code(s): Z23 - Encounter for immunization Category: Medical Plan: The patient will receive a flu vaccination during this visit. Plan Plan Patient was informed and verbally consented to the use of an ambient scribe for clinic note documentation during this visit. 1. Psoriasis The patient will continue with Otezla for psoriasis management, as it has been effective without adverse effects. No additional blood tests are required for monitoring at this time. 2. Hypertension The patient will continue with the current antihypertensive regimen of lisinopril and hydrochlorothiazide. Blood pressure monitoring will continue to ensure stability. 3. Bump On The Head (Possible Cyst) The patient has been referred to dermatology for evaluation of the bump on the head, suspected to be a cyst. Further management will be determined based on dermatological assessment. 4. Preventative Care: Flu Vaccination The patient will receive a flu vaccination during this visit. I discussed with the patient the continuation of Otezla for psoriasis, which has been effective without side effects. We also reviewed the current antihypertensive regimen, which will remain unchanged as it is effectively managing his blood pressure. The patient was referred to dermatology for the evaluation of a bump on his head, suspected to be a cyst, and will receive a flu vaccination today. Orders: Orders C Reactive Protein Today Z00.00 - Encounter for general adult medical examination without abnormal findings Hemoglobin A1c Today Z00.00 - Encounter for general adult medical examination without abnormal findings Liver Panel Today Z00.00 - Encounter for general adult medical examination without abnormal findings TSH reflex Free T4 Today Z00.00 - Encounter for general adult medical examination without abnormal findings Influenza [id number] Immunization Today Z23 - Encounter for immunization Complete Blood Count Auto Diff Today Z00.00 - Encounter for general adult medical examination without abnormal findings Comprehensive [place]. Panel Fast Today Z00.00 - Encounter for general adult medical examination without abnormal findings Lipid Panel Today Z00.00 - Encounter for general adult medical examination without abnormal findings PSA,Total (Free>4and<10) Today Z00.00 - Encounter for general adult medical examination without abnormal findings UA CC w/rflx Micro + Cult Today Z00.00 - Encounter for general adult medical examination without abnormal findings Magnesium Today Z00.00 - Encounter for general adult medical examination without abnormal findings Vitamin B12 and Folate Today Z00.00 - Encounter for general adult medical examination without abnormal findings Vitamin D 25-OH Total Today Z00.00 - Encounter for general adult medical examination without abnormal findings Referrals Dermatology Referral L72.9 - Follicular cyst of the skin and subcutaneous tissue, unspecified Patient Instructions: - Continue taking Otezla as prescribed for psoriasis. - Maintain current blood pressure medication regimen. - Attend dermatology appointment for evaluation of the bump on the head. - Receive flu vaccination during this visit.
[2024-11-09 10:21] VITALS: BP 132/78; PULSE 55; RESP 20; TEMP 36.4; O2SAT 98; BMI 30.6
== END 2024-11-09 11:02 | disposition home or self-care (01) ==
LOC: HO.HMCSH 10:10
PROVIDERS: PCP Internal Medicine; Visit Provider Physician Assistant Medical
DX: L40.9 Psoriasis, unspecified (principal); I10 Essential (primary) hypertension; L72.9 Follicular cyst of the skin and subcutaneous tissue, unspecified; Z23 Encounter for immunization

== ENCOUNTER → 2024-11-09 10:10 | Outpatient (BNVA) | payer MEDICARE, SELFPAY | PROVIDERS: PCP Internal Medicine; Visit Provider Physician Assistant Medical | DX: I10 Essential (primary) hypertension (principal); L40.9 Psoriasis, unspecified; R22.0 Localized swelling, mass and lump, head; Z23 Encounter for immunization; Z79.899 Other long term (current) drug therapy | CPT/HCPCS: 90471; 90656; 96127; 99202 ==